=== PATIENT | female | born 1970 | race Caucasian/White ===

== ENCOUNTER 2018-12-06 13:22 | Inpatient (IN) | payer MEDICAID ==
[~2018-12-06] VITALS: Ht 157.5 cm; Wt 72.6 kg
[~2018-12-06 13:22] MED LIST: ASPI-1393 PO; COR3 PO; FURO-152 PO; LEVO50TA8 PO; OMEP20TA15 PO; POTA10CA42 PO; SIMV20TA6 PO
[2018-12-06 15:30] LABS: CHLORIDE 104 mEq/L (98-107)
[2018-12-06 15:41] LABS: EOSINOPHILS % 1.4 % (0.0-5.0); HEMATOCRIT. 35.5 % (36.0-48.0); HEMOGLOBIN. 12.3 g/dL (12.0-16.0); LYMPHOCYTES % 24.3 % (20.0-50.0); MEAN CORPUSCULAR HEMOGLOBIN 33.1 pg (28.0-32.0); MEAN CORPUSCULAR VOLUME 95.4 fL (81.0-99.0); MEAN PLATELET VOLUME 10.6 fl (7.4-10.4); MONOCYTES % 13.6 % (2.0-8.0); NEUTROPHILS % 59.7 % (40.0-76.0); PLATELET 182 x1000/uL (130-400); RED BLOOD CELL COUNT 3.72 mill/uL (4.2-5.4); RED CELL DISTRIBUTION WIDTH 12.4 % (11.6-14.6)
[2018-12-06] MEDS ORDERED: CLONIDINE 0.1MG TABLET PO PRN (19:15)
[2018-12-06] MEDS ORDERED: MAGNESIUM/ALUMINUM HYDROXIDE/SIMETHICONE 30ML UDC PO PRN (19:15)
[2018-12-06] MEDS ORDERED: DIPHENHYDRAMINE 50MG/ML VIAL IV PRN (19:15)
[2018-12-06] MEDS ORDERED: ACETAMINOPHEN 325MG TABLET PO PRN (19:15)
[2018-12-06] MEDS ORDERED: GUAIFENESIN 200MG/10ML SUGAR FREE UDC PO PRN (19:15)
[2018-12-06] MEDS ORDERED: IPRATROPIUM/ALBUTEROL 0.5-3(2.5)MG/3ML NEB HHN PRN (19:15)
[2018-12-06] MEDS ORDERED: DOCUSATE SODIUM 100MG CAPSULE PO PRN (19:15)
[2018-12-06] MEDS ORDERED: ONDANSETRON HCL 4MG/2ML INJ IV PRN (19:15)
[2018-12-06 19:24] LABS: PHOSPHORUS 2.3 mg/dL (2.5-4.9)
[2018-12-06 23:30] VITALS: BP 94/41
[2018-12-07 04:00] VITALS: BP 92/47
[2018-12-07 06:53] LABS: EOSINOPHILS % 2.3 % (0.0-5.0); HEMATOCRIT. 34.8 % (36.0-48.0); LYMPHOCYTES % 36.2 % (20.0-50.0); MEAN CORPUSCULAR HEMOGLOBIN 32.8 pg (28.0-32.0); MEAN CORPUSCULAR VOLUME 95.5 fL (81.0-99.0); MEAN PLATELET VOLUME 10.2 fl (7.4-10.4); MONOCYTES % 13.5 % (2.0-8.0); PLATELET 176 x1000/uL (130-400); RED BLOOD CELL COUNT 3.65 mill/uL (4.2-5.4); RED CELL DISTRIBUTION WIDTH 12.3 % (11.6-14.6)
[2018-12-07 07:10] LABS: CHLORIDE 107 mEq/L (98-107)
[2018-12-07 07:17] LABS: LDL CHOLESTEROL 123 mg/dL (5-100)
[2018-12-07 07:18] LABS: HDL CHOLESTEROL 37 mg/dL (40-59)
[2018-12-07 08:00] VITALS: BP 105/58
[2018-12-07] MEDS: ENOXAPARIN 40MG/0.4ML SYR SUBCUT SCH (09:39)
[2018-12-07] MEDS ORDERED: POTASSIUM CHLORIDE 20MEQ TABLET SR PO NR (10:30)
[2018-12-07 12:00] VITALS: BP 108/60
[2018-12-07] MEDS ORDERED: CARVEDILOL 3.125 MG TABLET PO NR (12:30)
[2018-12-07] MEDS: FUROSEMIDE 40MG TABLET PO SCH (13:17)
[2018-12-07 16:00] VITALS: BP 102/54
[2018-12-07] MEDS: POTASSIUM CHLORIDE 20MEQ TABLET SR PO SCH (17:20)
[2018-12-07 20:00] VITALS: BP 99/53
[2018-12-07] MEDS: CARVEDILOL 3.125 MG TABLET PO SCH (21:00)
[2018-12-07] MEDS: ATORVASTATIN CALCIUM 10MG TABLET PO SCH (21:09)
[2018-12-08] VITALS (7 sets, daily range): BP systolic 96–161; BP diastolic 47–95
[2018-12-08] MEDS: LEVOTHYROXINE SODIUM 50MCG TABLET PO SCH (06:42)
[2018-12-08 07:02] LABS: EOSINOPHILS % 3.6 % (0.0-5.0); HEMATOCRIT. 32.1 % (36.0-48.0); HEMOGLOBIN. 11.3 g/dL (12.0-16.0); LYMPHOCYTES % 34.5 % (20.0-50.0); MEAN CORPUSCULAR HEMOGLOBIN 33.8 pg (28.0-32.0); MEAN CORPUSCULAR VOLUME 96.2 fL (81.0-99.0); MEAN PLATELET VOLUME 10.2 fl (7.4-10.4); MONOCYTES % 12.8 % (2.0-8.0); NEUTROPHILS % 48.1 % (40.0-76.0); PLATELET 162 x1000/uL (130-400); RED BLOOD CELL COUNT 3.34 mill/uL (4.2-5.4); RED CELL DISTRIBUTION WIDTH 12.3 % (11.6-14.6)
[2018-12-08 07:05] LABS: CHLORIDE 109 mEq/L (98-107)
[2018-12-08] MEDS: POTASSIUM CHLORIDE 20MEQ TABLET SR PO SCH ×2 (08:44→17:48)
[2018-12-08] MEDS: FUROSEMIDE 40MG TABLET PO SCH (08:44)
[2018-12-08] MEDS: CARVEDILOL 3.125 MG TABLET PO SCH ×2 (08:44→21:00)
[2018-12-08] MEDS: ENOXAPARIN 40MG/0.4ML SYR SUBCUT SCH (08:44)
[2018-12-08] MEDS ORDERED: POTASSIUM CHLORIDE 20MEQ TABLET SR PO NR (10:20)
[2018-12-08] MEDS ORDERED: LATANOPROST 0.005% OPHTH DROPS 2.5ML BOTHEYE SCH (21:00)
[2018-12-08] MEDS: ATORVASTATIN CALCIUM 10MG TABLET PO SCH (21:07)
[2018-12-09 00:14] VITALS: BP 104/49
[2018-12-09 04:00] VITALS: BP 102/50
[2018-12-09] MEDS: LEVOTHYROXINE SODIUM 50MCG TABLET PO SCH (06:42)
[2018-12-09 08:00] VITALS: BP 96/34
[2018-12-09] MEDS: ENOXAPARIN 40MG/0.4ML SYR SUBCUT SCH (08:51)
[2018-12-09] MEDS: FUROSEMIDE 40MG TABLET PO SCH (08:51)
[2018-12-09] MEDS: POTASSIUM CHLORIDE 20MEQ TABLET SR PO SCH (08:52)
[2018-12-09] MEDS: CARVEDILOL 3.125 MG TABLET PO SCH (08:57)
[2018-12-09 12:00] VITALS: BP 97/53
[2018-12-09] MEDS ORDERED: FURO40TA5 MT (12:41)
[2018-12-09 13:15] LABS: CHLORIDE 109 mEq/L (98-107)
[2018-12-09 13:20] LABS: BASOPHILS % 1.4 % (0.0-2.0); EOSINOPHILS % 2.9 % (0.0-5.0); HEMATOCRIT. 33.2 % (36.0-48.0); HEMOGLOBIN. 11.5 g/dL (12.0-16.0); LYMPHOCYTES % 39.1 % (20.0-50.0); MEAN CORPUSCULAR HEMOGLOBIN 33.3 pg (28.0-32.0); MEAN CORPUSCULAR VOLUME 96.3 fL (81.0-99.0); MEAN PLATELET VOLUME 10.4 fl (7.4-10.4); MONOCYTES % 13.5 % (2.0-8.0); NEUTROPHILS % 43.1 % (40.0-76.0); PLATELET 172 x1000/uL (130-400); RED BLOOD CELL COUNT 3.45 mill/uL (4.2-5.4); RED CELL DISTRIBUTION WIDTH 12.3 % (11.6-14.6)
[2018-12-09 14:25] VITALS: BP 97/53
== END 2018-12-09 16:21 | disposition home or self-care (01) | DRG 206 ==
LOC: ER 13:22 → 7WST 18:09 → ENRESERV 20:38
PROVIDERS: ADMIT Internal Medicine; ATTEND Internal Medicine
PROC: 4B02XTZ Measurement of Cardiac Defibrillator, External Approach (ICD-10-PCS; principal; 2018-12-08)
DX: T82.110A Breakdown (mechanical) of cardiac electrode, initial encounter (principal); I50.22 Chronic systolic (congestive) heart failure; M32.9 Systemic lupus erythematosus, unspecified; Y83.8 Other surgical procedures as the cause of abnormal reaction of the patient, or of later complication, without mention of misadventure at the time of the procedure; E87.6 Hypokalemia; E03.9 Hypothyroidism, unspecified; E78.5 Hyperlipidemia, unspecified; D72.819 Decreased white blood cell count, unspecified; E78.00 Pure hypercholesterolemia, unspecified; Z79.82 Long term (current) use of aspirin; Z79.899 Other long term (current) drug therapy; Y92.89 Other specified places as the place of occurrence of the external cause; Z95.810 Presence of automatic (implantable) cardiac defibrillator; Z90.49 Acquired absence of other specified parts of digestive tract; Z88.0 Allergy status to penicillin
CPT/HCPCS: 36415; 71045; 80048; 80061; 82962; 83735; 83880; 84100; 84443; 84484; 93005; 93306; 93970; 99285; J1650